=== PATIENT | male | born 2005 | race Caucasian/White ===

== ENCOUNTER 2023-11-08 10:33 | Emergency (ER) | payer OTHER, SELFPAY ==
--- NOTE | ~2023-11-08 | XR_ITS ---
EXAMINATION: XR CHEST CLINICAL INFORMATION: Chest pain COMPARISON: None available. TECHNIQUE: 2 views of the chest were obtained. FINDINGS: Lungs clear. No pleural effusions. Heart and pulmonary vessels are normal. XR/XR chest 2V IMPRESSION: No active disease.
--- NOTE | 2023-11-08 10:33 | ECG_ITS ---
Test Reason : chest pain Blood Pressure : / mmHG Vent. Rate : 101 BPM Atrial Rate : 101 BPM P-R Int : 114 ms QRS Dur : 094 ms QT Int : 320 ms P-R-T Axes : 087 085 071 degrees QTc Int : 414 ms Sinus tachycardia Right atrial enlargement Borderline ECG No previous ECGs available Referred By: Generic ED Physician Electronically Signed By:Parrish Vasquez
[2023-11-08 10:43] VITALS: BP 131/95; PULSE 93; RESP 18; TEMP 36.6; O2SAT 99; BMI 20.9
--- NOTE | 2023-11-08 14:17 | ED_ITS ---
HPI - General Adult General Chief complaint: Arrhythmia/Palpitations Stated complaint: Chest pain, palpitations Time Seen by Provider: 11/08/23 14:17 Source: patient Mode of arrival: ambulatory Limitations: no limitations History of Present Illness HPI narrative: Patient is a 18-year-old male with history of anxiety on nortriptyline presenting to the emergency department with complaint of palpitations since this morning. 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 States he was previously drinking energy drinks occasionally until he was told those were not good and so he discontinued those a few weeks ago. He denies chest pain but reports some chest tightness and states that when he thinks about his symptoms this increases his anxiety and his symptoms worsen. [place] lightheaded associated with palpitations while at work today. States that he looked up his symptoms online and feels he may have POTS. complaint: palpitations Onset (ago): hour(s) Location: chest Radiation: non-radiation Treatments prior to arrival: none Related Data Allergies Allergy/AdvReac Type Severity Reaction Status Date / Time amoxicillin Allergy Hives Verified 11/08/23 10:44 Review of Systems 2 Review of Systems: As per HPI. Yes all other systems are reviewed and are negative Constitutional: Constitutional: Reports as per HPI [facility] Social History Social History Smoked in Last 30 Days: No Advance Directives: No Advance Directives Information Provided: No Do you have a plan to hurt others: No Plan Physical Exam ED Vital Signs: Vital Signs - 24 hr 11/08/23 14:52 11/08/23 14:52 11/08/23 14:53 Temperature Pulse Rate 62 67 94 Respiratory Rate Blood Pressure 115/77 128/85 124/86 Pulse Oximetry Oxygen Delivery Method 11/08/23 16:27 Temperature 98 F Pulse Rate 94 Respiratory Rate 18 Blood Pressure 124/86 Pulse Oximetry 99 Oxygen Delivery Method Room Air BMI result Body Mass Index 20.9 Vital signs have been reviewed and appear to be correct. Blood pressure mildly elevated. Heart rate normal. Respiratory rate normal. Temperature normal. Oxygen saturation normal. Const General: cooperative, healthy appearing and no acute distress Orientation/consciousness: oriented to person, oriented to place, oriented to time and patient oriented x3 Limitations: no limitations HENMT Head: Yes normocephalic and Yes atraumatic Ears: external ears normal General nose exam: Normal external nose present Face and sinus: Yes face symmetric Mouth: oropharynx normal and moist mucous membranes Throat: Yes uvula midline Eyes Pupils: Equal, round and reactive pupils present Neck Neck: Yes normal visual inspection and Yes supple Resp Effort & Inspection: normal respiratory effort and able to speak in complete sentences Auscultation: clear to auscultation bilaterally Cardio Rate: regular rate Rhythm: regular rhythm Heart sounds: S1 normal heart sound present and S2 normal heart sound present GI Palpation (GI): Soft to palpation and nontender Auscultation: normoactive bowel sounds General: Yes no CVA tenderness Back/Spine/Pelvis Back: no CVA tenderness Skin General skin exam: elasticity normal and turgor normal Neuro General: oriented to person, oriented to place, oriented to time, patient oriented x3, moves all extremities, no focal motor deficits and CN's II-XI intact bilaterally Cranial nerves: Yes Equal, round and reactive pupils present Cognition (Neuro): normal cognition Extrem General: Yes full ROM, Yes no pedal edema and Yes no calf tenderness Psych Mental Status: mental status grossly normal Affect: normal affect Thought process: Normal thought process present Medications Administered Discontinued Medications Generic Name Dose Route Start Last Admin Trade Name Freq PRN Reason Stop Dose Admin Sodium Chloride 1,000 mls @ 999 mls/hr 11/08/23 14:30 11/08/23 16:02 Ns IV 11/08/23 15:30 Infused .Q1H1M ARINA Infusion Medical Decision Making Medical Decision Making [facility] Narrative: Patient is a 18-year-old male with history of anxiety on nortriptyline presenting to the emergency department with complaint of palpitations since this morning. On exam patient is awake, A+Ox3, VS WNL, afebrile, normal neurological exam without focal deficits, physical exam findings as above. Given reported symptoms and physical exam findings, initial differential includes cardiac arrhythmia, electrolyte abnormality, dehydration, orthostatic intolerance, viral illness. Unlikely ACS. Plan: EKG, labs, CXR, viral swabs Labs notable for no leukocytosis, no anemia, no electrolyte abnormalities, no evidence of KAYLA, negative troponin. X-ray chest unremarkable on my initial review. Will contact patient if any concerning findings noted by radiologist. EKG shows sinus tachycardia with rate of 101. Viral swabs negative. Heart rate increased with orthostatic vital signs but blood pressure euvolemic. Differential Diagnosis Differential Diagnoses: The differential diagnosis associated with the presentation includes As per MDM. Admission/Observation Consideration of admission/observation: Escalation of care including admission/observation considered Patient would have been admitted to the hospital had their work up had any findings where hospital admission was appropriate and their clinical presentation warranted hospital admission. Lab Data [facility] Lab Attestation statement: I reviewed the patient's lab results. As per [facility] 11/08/23 14:47 11/08/23 14:47 Labs: Lab Results 11/08/23 11/08/23 Range/Units 14:47 14:57 WBC 5.6 (4.8-10.8) X10*3/uL RBC 4.92 (4.60-5.80) X10*6/uL Hgb 15.7 (14.0-18.0) g/dl Hct 44.6 (42.0-52.0) % MCV 90.7 (80.0-98.0) fL MCH 31.9 (27.0-33.0) pg MCHC 35.2 (31.0-36.0) g/dl RDW 11.4 (11.0-16.0) % Plt Count 229 (160-400) X10*3/uL MPV 9.7 (9.4-12.4) fL Immature Gran % (Auto) 0.2 (0.0-0.4) % Neut % (Auto) 58.2 (45-73) % Lymph % (Auto) 31.9 (20-40) % Gaston % (Auto) 5.7 (2-11) % Eos % (Auto) 2.9 (0-4) % Baso % (Auto) 1.1 (0-2) % Lymph # (Auto) 1.8 (1.2-4.9) X10*3/uL Gaston # (Auto) 0.3 (0.1-1.2) X10*3/uL Eos # (Auto) 0.2 (0.0-0.4) X10*3/uL Baso # (Auto) 0.1 (0.0-0.2) X10*3/uL Abs Immat Gran (auto) 0.01 (0.00-0.03) X10*3/uL Absolute Neuts (auto) 3.3 (2.0-8.3) x10*3/uL Absolute Nucleated RBC 0.000 (0.0-0.012) X10*3/uL Nucleated RBC % (auto) 0.0 (0.0-0.2) /100WBC Sodium 141 (135-145) mmol/L Potassium 3.8 (3.3-5.1) mmol/L Chloride 105 (96-108) mmol/L Carbon Dioxide 27 (22-29) mmol/L Anion Gap 13 (12-20) BUN 14 (9-16) mg/dL Creatinine 0.78 (0.5-1.4) mg/dL Estim Creat Clear Calc 145.3 Estimated GFR > 60 Random Glucose 90 (60-115) mg/dL Calcium 9.9 (8.4-10.2) mg/dL Magnesium 2.3 (1.6-2.6) mg/dL Total Bilirubin 0.7 (0.0-1.0) mg/dL AST 20 (5-37) U/L ALT 14 (0-40) U/L Alkaline Phosphatase 52 (39-117) U/L Troponin I High Sens < 2.7 (<3.5-35.0) ng/L Total Protein 7.6 (6.5-8.0) g/dL Albumin 4.6 (3.5-5.0) g/dL Influenza Type A (PCR) NEGATIVE (Negative) Influenza Type B (PCR) NEGATIVE (Negative) RSV RNA Qual (PCR) NEGATIVE (Negative) SARS-CoV-2 RNA (RT-PCR) NEGATIVE (Negative) Independent Interpretation I performed an independent interpretation of an: EKG (Sinus tachycardia, rate 101 beats per minute, slightly shortened SD interval, normal QTC) and Plain X- Ray Interpretation: CXR unremarkable. Radiology Impression Discussion of test interpretation with radiology: I have reviewed the radiologist's reading. Radiologist Impression: FINDINGS: Lungs clear. No pleural effusions. Heart and pulmonary vessels are normal. XR/XR chest 2V IMPRESSION: No active disease. External Record Review External record reviewed: Inpatient record, Office record and Outpatient record Discharge Plan Discharge Clinical Impression: Palpitations Patient Disposition: Home, Self-Care Instructions: Heart Palpitations (DC) Additional Instructions: You were evaluated in the emergency department for heart palpitations. Your evaluation did not show evidence of conditions requiring emergent medical treatment at this time. We recommend he follow up with her primary care provider. We recommend that while you are working outdoors, you alternate water with drinks containing electrolytes such as Gatorade or Powerade. Return to the emergency department if you develop chest pain, difficulty breathing, dizziness, fainting or any other concerning symptoms. Stand Alone Forms: Work/School Release Interventions: ED Discharge Assessment Last Done: 11/08/23 16:27 Discharge Date/Time: 11/08/23 16:34 Print Language: Burundian
--- OUTSIDE RECORDS SUMMARY | 2023-11-08 14:28 | XMS_ITS | Continuity of Care Document ---
Author Organization [facility] Address [address] [place] [address]- Care Team Providers Care Concrete Bucket Loader Name Role Phone Shannon Frank MD Primary Care Physician Encounter [facility] Date(s): 06/11/23 - 07/11/23 [facility] [address] [place] [address]- Attending Physician: Kris Keller Admitting Physician: Kris Keller Referring Physician: AdmKris rizvi Allergies, Adverse Reactions, Alerts Substance Reaction Severity Status amoxicillin Rash Active Immunizations Given and Recorded Vaccine Date Status Refusal Reason SARS-CoV-2 (COVID-19) mRNA BNT-162b2 vac 10/14/20 Given Medications hyoscyamine 0.125 mg oral tablet 0.125 mg, 1, tablet, By Mouth, Every 6 hours, PRN, # 90 tablet, Refills 2, Tot. Refills 2, Maintenance, Other abdominal cramping, 06/11/23 13:51:00 EST, Route to Pharmacy Electronically, [facility]/pharmacy #[id number], 180, cm, 06/11/23 13:31:00 EST, Height Start Date: 06/11/23 Status: Ordered Readi-Cat 2 Smoothie Morocho 2% oral suspension See Instructions, as directed, # 2 each, 0 Refills, Maintenance, 06/11/23 13:53:00 EST, [facility], ok to sub for any flavor, as directed, 180, cm, 06/11/23 13:31:00 EST, Height Start Date: 06/11/23 Status: Ordered Problem List Condition Confirmation Course Effective Dates Status H ealth Status Informant IBS (irritable bowel syndrome) Confirmed Active Periumbilical abdominal pain Confirmed Active Patient Care team information Care Team Personnel Name: Shannon Frank MD Position: S Physician - Pediatrics Member Role: PCP Address: Address: [address] [place] [address]- Care Team Related Persons Name: RAJ TRINIDAD Address: [address] [place] [address] Name: BEULAH MITCHELL Address: home [address] [place] [address] Name: BEULAH MITCHELL Address: [address] [place] [address]
--- OUTSIDE RECORDS SUMMARY | 2023-11-08 14:28 | XMS_ITS | Continuity of Care Document ---
Author Organization [facility] Address [address] [place] [address]- Care Team Providers Care Toy Stuffer Name Role Phone Shannon Frank MD Primary Care Physician Encounter [facility] [place] Date(s): 06/11/23 - 06/18/23 [facility] [address] [place] [address]- Encounter Diagnosis IBS (irritable bowel syndrome)(Discharge Diagnosis) - 06/11/23 Periumbilical abdominal pain(Discharge Diagnosis) - 06/11/23 Chronic constipation(Discharge Diagnosis) - 06/11/23 Rectal tenesmus(Discharge Diagnosis) - 06/11/23 Anal pruritus(Discharge Diagnosis) - 06/11/23 Attending Physician: Jason Henderson MD Referring Physician: Shannon Frank MD Allergies, Adverse Reactions, Alerts Substance Reaction Severity Status amoxicillin Rash Active Immunizations Given and Recorded Vaccine Date Status Refusal Reason SARS-CoV-2 (COVID-19) mRNA BNT-162b2 vac 10/14/20 Given Medications Anusol-HC 2.5% topical cream 1 application, Topically, 2 times a day, for 10 days, Do not use for more than 10 consecutive days,# 20 Gm, 0 Refills, Acute 06/21/23 13:56:00 EST, 06/11/23 13:56:00 EST, Cream, [facility], Partial fill upon patient request if the pr... Start Date: 06/11/23 Stop Date: 06/21/23 Status: Ordered hyoscyamine 0.125 mg oral tablet 0.125 mg, 1, tablet, By Mouth, Every 6 hours, PRN, # 90 tablet, Refills 2, Tot. Refills 2, Maintenance, Other abdominal cramping, 06/11/23 13:51:00 EST, Route to Pharmacy Electronically, [facility]/pharmacy #[id number], 180, cm, 06/11/23 13:31:00 EST, Height Start Date: 06/11/23 Status: Ordered Readi-Cat 2 Smoothie Morocho 2% oral suspension See Instructions, as directed, # 2 each, 0 Refills, Maintenance, 06/11/23 13:53:00 EST, [facility], ok to sub for any flavor, as directed, 180, cm, 06/11/23 13:31:00 EST, Height Start Date: 06/11/23 Status: Ordered Problem List Condition Confirmation Course Effective Dates Status H ealth Status Informant IBS (irritable bowel syndrome) Confirmed Active Periumbilical abdominal pain Confirmed Active Diagnosis Diagnosis Type Effective Dates Health Status Clinical Service Informant IBS (irritable bowel syndrome) Discharge Diagnosis 06/11/23 Periumbilical abdominal pain Discharge Diagnosis 06/11/23 Chronic constipation Discharge Diagnosis 06/11/23 Rectal tenesmus Discharge Diagnosis 06/11/23 Anal pruritus Discharge Diagnosis 06/11/23 Vital Signs Most recent to oldest [Reference Range]: 1 Height 180 cm (06/11/23 1:31 PM) Weight 67.9 kg (06/11/23 1:31 PM) Pulse Rate [55-90 bpm] 59 bpm (06/11/23 1:31 PM) Body Mass Index [18.5-24.99 kg/m2] 20.96 kg/m2 (06/11/23 1:31 PM) Blood Pressure [90-138/55-84 mm Hg] 124/ 76mm Hg (06/11/23 1:31 PM) Blood pressure sites Arm, left (06/11/23 1:31 PM) Weight Obtained Via Bed scale (06/11/23 1:31 PM) Patient Care team information Care Team Personnel Name: Shannon Frank MD Position: [facility] Physician - Pediatrics Member Role: PCP Address: Address: [address] [place] [address]- Care Team Related Persons Name: RAJ TRINIDAD Address: home [address] [place] [address] Name: BEULAH MITCHLEL Address: home [address] [place] [address]
--- OUTSIDE RECORDS SUMMARY | 2023-11-08 14:28 | XMS_ITS | Continuity of Care Document ---
Author Organization [facility] Address [address] [place] [address]- Care Team Providers Care Genomics Scientist Name Role Phone Shannon Frank MD Primary Care Physician [phone] Encounter [facility] Date(s): 06/22/22 - 07/22/22 [facility] [address] [place] [address]- Attending Physician: Kris Keller Admitting Physician: Kris Keller Referring Physician: Admtr, Ar8 Immunizations Given and Recorded Vaccine Date Status Refusal Reason SARS-CoV-2 (COVID-19) mRNA BNT-162b2 vac 10/14/20 Given Patient Care team information Care Team Personnel Name: Shannon Frank MD Position: [facility] General Pediatrics Member Role: PCP Address: Address: [address] [place] [address]- Care Team Related Persons Name: RAJ TRINIDAD Address: home [address] [place] [address] Name: BEULAH MITCHELL Address: home [address] [place] [address]
--- OUTSIDE RECORDS SUMMARY | 2023-11-08 14:28 | XMS_ITS | Continuity of Care Document ---
Author Organization [facility] Address [address] [place] [address]- Care Team Providers Care Cost Report Clerk Name Role Phone Zac MESA, Shannon Ortega Primary Care Physician [phone] Encounter [facility] Date(s): 07/05/23 - 08/04/23 [facility] [address] [place] [address]- [place] Allergies, Adverse Reactions, Alerts Substance Reaction Severity Status amoxicillin Rash Active Immunizations Given and Recorded Vaccine Date Status Refusal Reason SARS-CoV-2 (COVID-19) mRNA BNT-162b2 vac 10/14/20 Given Medications hyoscyamine 0.125 mg oral tablet 0.125 mg, 1, tablet, By Mouth, Every 6 hours, PRN, # 90 tablet, Refills 2, Tot. Refills 2, Maintenance, Other abdominal cramping, 06/11/23 13:51:00 EST, Route to Pharmacy Electronically, [facility]/pharmacy #[id number], 180, cm, 06/11/23 13:31:00 EST, Height Start Date: 06/11/23 Status: Ordered PEG-3350 with Electrolytes (Eqv-GoLYTELY) oral powder for reconstitution See Instructions, per GI office, # 4,000 mL, 0 Refills, Maintenance, 07/30/23 8:42:00 EST, [facility]/pharmacy #[id number], Partial fill upon patient request if the prescription is for a schedule II opioid drug.,per GI office, 180, cm, 06/11/23 13:31:00 EST, Height Start Date: 07/30/23 Status: Ordered Readi-Cat 2 Smoothie Morocho 2% oral suspension See Instructions, as directed, # 2 each, 0 Refills, Maintenance, 06/11/23 13:53:00 EST, [facility], ok to sub for any flavor, as directed, 180, cm, 06/11/23 13:31:00 EST, Height Start Date: 06/11/23 Status: Ordered Problem List Condition Confirmation Course Effective Dates Status H ealth Status Informant IBS (irritable bowel syndrome) Confirmed Active Periumbilical abdominal pain Confirmed Active Patient Care team information Care Team Personnel Name: Shannon Frank MD Position: [facility] Physician - Pediatrics Member Role: PCP Address: Address: [address] [place] [address]- Care Team Related Persons Name: RAJ TRINIDAD Address: home [address] [place] [address] Name: BEULAH MITCHELL Address: home [address] [place] [address] Name: BEULAH MITCHELL Address: [place] [address] [place] [address]
--- OUTSIDE RECORDS SUMMARY | 2023-11-08 14:28 | XMS_ITS | Continuity of Care Document ---
Author Organization [facility] Address [address] [place] [address]- Care Team Providers Care Neurology Professor Name Role Phone Shannon Frank MD Primary Care Physician Encounter [facility] Date(s): 04/17/23 - 05/17/23 [facility] [address] [place] [address]- Attending Physician: Kris Keller Admitting Physician: Kris Keller Referring Physician: AdmtrKris Allergies, Adverse Reactions, Alerts Substance Reaction Severity Status amoxicillin Rash Persistent Severe Resolved Immunizations Given and Recorded Vaccine Date Status Refusal Reason SARS-CoV-2 (COVID-19) mRNA BNT-162b2 vac 10/14/20 Given Medications dicyclomine 20 mg oral tablet 1 tablet = 20 mg, By Mouth, 4 times a day, # 360 tablet, 2 Refills, Maintenance, 04/17/23 13:54:00 EDT, Tablet, [facility]/pharmacy #[id number], 150, cm, 04/17/23 13:23:00 EDT, Height Start Date: 04/17/23 Stop Date: 01/12/24 Status: Ordered Problem List Condition Confirmation Course Effective Dates Status H ealth Status Informant IBS (irritable bowel syndrome) Confirmed Active Obese class I Confirmed Active Periumbilical abdominal pain Confirmed Active Patient Care team information Care Team Personnel Name: Shannon Frank MD Position: S Physician - Pediatrics Member Role: PCP Address: Address: [address] [place] [address]- Care Team Related Persons Name: RAJ TRINIDAD Address: home [address] [place] [address] Name: BEULAH MITCHELL Address: [address] [place] [address]
--- OUTSIDE RECORDS SUMMARY | 2023-11-08 14:29 | XMS_ITS | Continuity of Care Document ---
Author Organization [facility] Address [address] [place] [address]- Care Team Providers Care Fire Official Name Role Phone Zac MESA, Shannon Ortega Primary Care Physician Encounter [facility] [place] Date(s): 07/09/23 - 08/08/23 [facility] [address] [place] [phone]- [place] Allergies, Adverse Reactions, Alerts Substance Reaction [...] 13:51:00 EST, Route to Pharmacy Electronically, [facility]/pharmacy #[id number], 180, cm, 06/11/23 13:31:00 EST, Height Start Date: 06/11/23 Status: Ordered PEG-3350 with Electrolytes (Eqv-GoLYTELY) oral powder for reconstitution See Instructions, per GI office, # 4,000 mL, 0 Refills, Maintenance, 07/30/23 8:42:00 EST, [facility]/pharmacy #[id number], Partial fill upon patient request if the prescription is for a schedule II opioid drug.,per GI office, 180, cm, 06/11/23 13:31:00 EST, Height Start Date: 07/30/23 Status: Ordered Readi-Cat 2 Smoothie Morocho 2% oral suspension See Instructions, as directed, # 2 each, 0 Refills, Maintenance, 06/11/23 13:53:00 EST, [facility], ok to sub for any flavor, as directed, 180, cm, 06/11/23 13:31:00 EST, Height Start Date: 06/11/23 Status: Ordered Problem List Condition Confirmation Course Effective Dates Status H ealth Status Informant IBS (irritable bowel syndrome) Confirmed Active Periumbilical abdominal pain Confirmed Active Patient Care team information Care Team Personnel Name: Shannon Frank MD Position: [facility] Physician - Pediatrics Member Role: PCP Address: Address: [address] [place] [address]- Care Team Related Persons Name: RAJ TRINIDAD Address: home [address] [place] [address] Name: BEULAH MITCHELL Address: home [address] [place] [address] Name: BEULAH MITCHELL Address: [address] [place] [address]
--- OUTSIDE RECORDS SUMMARY | 2023-11-08 14:29 | XMS_ITS | Continuity of Care Document ---
Author Organization [facility] ter Address [address] [place] [address]- Care Team Providers Care Automotive Painter Helper Name Role Phone Zac MESA, Shannon Ortega Primary Care Physician [phone] Encounter [facility] Date(s): 07/31/23 - 07/31/[address] [address] Discharge Disposition: A-D/C Home Attending Physician: Homero Frye MD Admitting Physician: Homero Frye MD Referring Physician: Homero Frye MD Allergies, Adverse Reactions, Alerts Substance Reaction Severity Status amoxicillin Rash Active Immunizations Given and Recorded Vaccine Date Status Refusal Reason SARS-CoV-2 (COVID-19) mRNA BNT-162b2 vac 10/14/20 Given Medications hyoscyamine 0.125 mg oral tablet 0.125 mg, 1, tablet, By Mouth, Every 6 hours, PRN, # 90 tablet, Refills 2, Tot. Refills 2, Maintenance, Other abdominal cramping, 06/11/23 13:51:00 EST, Route to Pharmacy Electronically, [id number], 180, cm, 06/11/23 13:31:00 EST, Height Start Date: 06/11/23 Status: Ordered PEG-3350 with Electrolytes (Eqv-GoLYTELY) oral powder for reconstitution See Instructions, per GI office, # 4,000 mL, 0 Refills, Maintenance, 07/30/23 8:42:00 EST, [id number], Partial fill upon patient request if the prescription is for a schedule II opioid drug.,per GI office, 180, cm, 06/11/23 13:31:00 EST, Height Start Date: 07/30/23 Status: Ordered Readi-Cat 2 Smoothie Morocho 2% oral suspension See Instructions, as directed, # 2 each, 0 Refills, Maintenance, 06/11/23 13:53:00 EST, [facility], ok to sub for any flavor, as directed, 180, cm, 06/11/23 13:31:00 EST, Height Start Date: 06/11/23 Status: Ordered Problem List Condition Confirmation Course Effective Dates Status H ealth Status Informant IBS (irritable bowel syndrome) Confirmed Active Periumbilical abdominal pain Confirmed Active Vital Signs Most recent to oldest [Reference Range]: 1 2 3 Height 180 cm (07/31/23 10:29 AM) Weight 69 kg (07/31/23 10:29 AM) Oxygen Saturation [94-100 %] 100 % (07/31/23 12:06 PM) 100 % (07/31/23 11:56 AM) 100 % (07/31/23 11:51 AM) Pulse Rate [55-90 bpm] 97 bpm *H* (07/31/23 10:29 AM) Body Mass Index [18.5-24.99 kg/m2] 21.3 kg/m2 (07/31/23 10:29 AM) Blood Pressure [90-138/55-84 mm Hg] 128/69mm Hg (07/31/23 12:06 PM) 142/78mm Hg *H* (07/31/23 11:56 AM) 116/76mm Hg (07/31/23 11:51 AM) Respiratory Rate [16-30 br/min] 16 br/min (07/31/23 12:06 PM) 23 br/min (07/31/23 11:56 AM) 21 br/min (07/31/23 11:51 AM) Temperature [96.8-100.4 DegF] 98.5 DegF (07/31/23 10:29 AM) Liters per Minute 4 L/min (07/31/23 11:51 AM) 8 L/min (07/31/23 11:48 AM) 8 L/min (07/31/23 11:45 AM) Mode of Delivery (Oxygen) Room air (07/31/23 12:06 PM) Room air (07/31/23 11:56 AM) Simple face mask (07/31/23 11:51 AM) Temperature Route Temporal (07/31/23 10:29 AM) Dry Weight 69 kg (07/31/23 10:29 AM) Note * Lady Gallego RN: PERFORM Event Display: Discharge/Transfer Note Hospital Authored Date: [id number] Nursing Discharge Note Entered On: 07/31/2023 11:47 EST Performed On: 07/31/2023 11:47 EST by Lady Gallego RN Nursing Discharge Note 2 Discharge Time : 07/31/2023 12:23 EST Kristy Elaine RN - 07/31/2023 12:24 EST Discharge Level of Care at Discharge : Home/Penitentiary/Foster Care Patient Left Unit Via : Wheelchair Patient Accompanied Off Unit with : Responsible adult DC Instructions Provided & Signed by Pt : Yes Patient Understands D/C Instructions : Yes Patient Instructions Discharge Signed : Yes Did Pt have Specialty Bed or Wound Vac : No Lady Gallego RN - 07/31/2023 11:47 EST * Lady Gallego RN: PERFORM Event Display: Patient Education/Instruction Authored Date: [id number] [place] [address] Name: SETH MITCHELL : 2005?? Visit: 07/31/2023 09:46?? Current Date: 07/31/2023 11:48 ?? Account: [id number]?? Surgery Discharge Instructions We would like to thank you for allowing us to assist you with your healthcare needs. The following includes patient education materials and information regarding your injury/illness. Our entire staffstrives to provide an excellent experience for our patients and their families. PLEASE ENSURE YOU FOLLOW-UP PER THE INSTRUCTIONS BELOW! ?? YOUR OPINION IS IMPORTANT TO US! Please complete the survey you may receive by mail or email. Your feedback will be used to make improvements to the healthcare experiences of our patients and their families. Surveys are administered by [employer] ?? If further treatment with your primary care physician or another doctor is recommended, it is important for you to keep the appointment. Call your primary care physician or return to the Emergency Department immediately if your condition worsens, fails to improve, or new symptoms develop. If you need to find a doctor, you can call [facility] for a referral at [phone] or toll free at [phone] ([phone]) or log in to [email or web address].. ?? [facility], in keeping with [facility] guidance, no longer requires face masks for staff, patientsor visitors in most situations. Similiar to time spent indoors at other locations, there is the chance that you were exposed to repiratory viruses during your time with us (such as flu or COVID-19). If you develop symptoms concerning for a viral respiratory infection, please seek testing (and treatment if indicated) from your medical provider or home test kit. ?? You can view and manage your care through the patient portal or by using a health care diana of your choosing. [employer] is a website that allows you to securely view your medical information including your hospital discharge summary, office visit summaries, medications and follow-up visits. You can also request appointments, renew medications, and request access to your medical information using a health care diana of your choosing, or just ask a question. You are entitled to know the individuals who participated in your treatment. This information is available within your medical record and will be provided upon your request. You can enroll at [email or web address] or register d uring your next office visit. You have been discharged from [facility], Patient Care Unit: ENDO??. If you have any questions regarding these instructions after you leave, please call us and we will be happy to assist you. [facility] Your Care Team Attending Physician Uday MESA, Homero Valencia?? Discharging Providers Homero Frye MD Reason for Admission ABN CT SHOWING COLITISSTOOL STUDY NEGATIVE Primary Care Provider Shannon Frank MD? Advance Directive Health Care Proxy on File No What to do next Instructions From Your Doctor ?? Orders?? Daystay Protocol, ??07/31/23 11:40:00 EST?? Scheduled Follow-Up Appointments 2023 3:00 PM EST ?? With: Hossein CARLSON, Chester Henderson Where: [facility] [address] [place] [address]- Status: Pending You Need to Schedule the Following Appointments Follow Up with??Follow up with primary care as needed Follow Up with??Shannon Frank When:??In 0 days Discharge Medications SETH MITCHELL :2005 Visit Date:07/31/2023 Medications: Please continue your medications until treatment is completed or stopped by your provider. You may resume your daily prescription medications. Discuss any questions related to medications with your provider. What How Much When Instructions Next Dose Unchanged Barium Sulfate (Readi-Cat 2 Smoothie Morocho 2% oral suspension) See instructions as directed ?? Unchanged Hyoscyamine (hyoscyamine 0.125 mg oral tablet) 1 tab(s) Oral Every 6 hours as needed for Other abdominal cramping Unchanged PEG Electrolyte Solution (PEG-3350 with Electrolytes (Eqv-GoLYTELY) oral powder for reconstitution) See instructions per GI office ?? Allergies (NKA means No Known Allergies) amoxicillin??(Rash) Education Materials Below is the list of Educational Leaflet Providered with your Discharge Instructions. Surgery Medical Daystay Surgical Overnight Discharge Instructions?? Valuables and Belongings I fully understand and agree that [facility] accepts no responsibility for all my personal property including clothing, toilet articles, radios, jewelry, dentures, hearing aids, rings, money, or any other property that is in my possession or is brought to me after admission. I understand certain valuables may be placed in a hospital safe for a short period of time. I understand that the hospital is not liable for loss or damage due to accident, fire, or other natural occurrence while said property is in the safe. I accept full responsibility for any personal property that I keep with me, and will not hold the hospital responsible in case of loss or disappearance. I acknowledge that i have been encouraged to send valuables and belongings home. ? Other Discharge Information ? Case Management Discharge Plan?? Discharge Plan?? Discharge Level of Care at Discharge: Home/Penitentiary/Foster Care ?? Pulmonary Rehab Status?? Pulmonary Rehab Discharge Status?? Respiratory Rate: 17 br/min ? Common Emergency Awareness Tips IS IT A STROKE? Act FAST and Check for these signs: FACE Does the face look uneven? ARM Does one arm drift down? SPEECH Does their speech sound strange? TIME Call at any sign of stroke ?? Heart Attack Signs Chest discomfort: Most heart attacks involve discomfort in the center of the chest and lasts more than a few minutes, or goes away and comes back. It can feel like uncomfortable pressure, squeezing, fullness or pain. Discomfort in upper body: Symptoms can include pain or discomfort in one or both arms, back, neck, jaw or stomach. Shortness of breath: With or without discomfort. Other signs: Breaking out in a cold sweat, nausea, or lightheaded. Remember, MINUTES DO MATTER. If you experience any of these heart attack warning signs, call to get immediate medical attention! ?? Smoking can increase your chances of developing chronic health problems and can cause harmful effects to other family members in your house. If you smoke, you are strongly encouraged to quit. Please call [facility] at [phone] or [phone]) or log in to [email or web address] for referrals to smoking cessation programs. ?? The National Suicide Prevention Hotline is available 22/01 if you or someone you know needs to find a reason to keep living. By calling 4-022-987-Clixtr (2169) you'll be connected to a skilled, trained counselor at a crisis center in your area. SURGERY DISCHARGE INSTRUCTIONS SIGNATURE PAGE PAULASETH Location:[facility] Registration Date and Time:07/31/2023 09:46 EST Primary Care Physician: Shannon Frank MD, Attending Physician: Uday MESA, Homero Valencia, I SETH MITCHELL, have received the above patient education materials/instructions and have verbalized understanding. If ambulance or transport services are being used I further acknowledge beinggiven a choice of service. ?? If you need to contact me, please call me at this number: . Patient/Strategy Consultant Name: Patient/Strategy Consultant Signature: Relationship to Patient: Witness Name/Signature: Date: * Lady Gallego RN: PERFORM, SIGN, VERIFY Event Display: Patient Education Handout Authored Date: [id number] * Lady Gallego RN: PERFORM Event Display: Patient Education Leaflets Authored Date: [id number] Surgery Medical Daystay Surgical Overnight Discharge Instructions ?? 295 Medical Daystay/Surgical Overnight Discharge Instructions ? Since your coordination and judgment may be altered by medication and/or anesthesia, a responsible adult must drive you home from the hospital. ? If you have received medication for pain or sedation while under our care, you should not drive, operate machinery, drink alcohol, or sign any legal documents for 24 hours.?? You should have someone with you at home tonight. ? Remain at home the day of discharge.?? You may be up and about unless otherwise instructed by your physician. ? You may resume your daily prescription medication schedule.?? Any depressant medication should be avoided for 24 hours unless otherwise instructed by your surgeon or anesthesiologist. ? Call your physician for a follow-up appointment.? If you experience unusual or severe pain not relied by your pain medication, excessive bleedingor drainage, persistent nausea and vomiting, excessive swelling or redness, foul odor from incisionsite or fever over 100.6F, you need to call your physician. ? A follow-up phone call by a nurse will be made the day after your procedure.?? If you have stayed with us over night, you will not be receiving a follow-up phone call. ? Nausea and vomiting are a common side effect of prescription pain medication.?? We recommend that pills are not taken on an empty stomach.?? While taking any prescription pain medication you should not drive or drink alcohol. ? Patient Care team information Care Team Personnel Name: Shannon Frank MD Position: [facility] Physician - Pediatrics Member Role: PCP Address: Address: [address] [place] [address]- Care Team Related Persons Name: RAJ TRINIDAD Address: home [address] [place] Name: BEULAH MITCHELL Address: home [address] [place] Name: BEULAH MITCHELL Address: [place] [address] [place] [address]
--- OUTSIDE RECORDS SUMMARY | 2023-11-08 14:29 | XMS_ITS | Continuity of Care Document ---
Author Organization [facility] Address [address] [place] [address]- Care Team Providers Care Bulk Materials Handling Plant Operator Name Role Phone Zac MESA, Shannon Ortega Primary Care Physician Encounter [facility] Date(s): 07/16/23 - 08/15/23 [facility] [address] [place] [address]- [place] Allergies, Adverse Reactions, Alerts Substance Reaction [...] 13:51:00 EST, Route to Pharmacy Electronically, [facility] #[id number], 180, cm, 06/11/23 13:31:00 EST, Height Start Date: 06/11/23 Status: Ordered nortriptyline 10 mg oral capsule 10 mg, 1, capsule, By Mouth, Daily at bedtime, # 90 capsule, Refills 3, Tot. Refills 3, Maintenance, 08/09/23 15:12:00 EST, Route to Pharmacy Electronically, [facility]/pharmacy #[id number], 180, cm, 08/09/23 15:01:00 EST, Height, 69, kg, 07/31/23 10:29:00 EST, . Start Date: 08/09/23 Status: Ordered PEG-3350 with Electrolytes (Eqv-GoLYTELY) oral powder for reconstitution See Instructions, per GI office, # 4,000 mL, 0 Refills, Maintenance, 07/30/23 8:42:00 EST, [facility]/pharmacy #[id number], Partial fill upon patient request if the prescription is for a schedule II opioid drug.,per GI office, 180, cm, 06/11/23 13:31:00 EST, Height Start Date: 07/30/23 Status: Ordered Readi-Cat 2 Smoothie Morocho 2% oral suspension See Instructions, as directed, # 2 each, 0 Refills, Maintenance, 06/11/23 13:53:00 EST, [facility], ok to sub for any flavor, as directed, 180, cm, 06/11/23 13:31:00 EST, Height Start Date: 06/11/23 Status: Ordered Problem List Condition Confirmation Course Effective Dates Status H ealth Status Informant Generalized anxiety disorder Confirmed Active IBS (irritable bowel syndrome) Confirmed Active Periumbilical abdominal pain Confirmed Active Patient Care team information Care Team Personnel Name: Zac MESA, Shannon Ortega Position: [facility] Physician - Pediatrics Member Role: PCP Address: Address: [address] [place] [address]- Care Team Related Persons Name: RAJ TRINIDAD Address: home [facility] [place] [address] Name: BEULAH MITCHELL Address: home [address] [place] [address] Name: BEULAH MITCHELL Address: [place] [address] [place] [address]
--- OUTSIDE RECORDS SUMMARY | 2023-11-08 14:29 | XMS_ITS | Continuity of Care Document ---
Author Organization [facility] Address [address] [place] [address]- Care Team Providers Care Cardiac Technician Name Role Phone Zac MESA, Shannon Ortega Primary Care Physician Encounter [facility] Date(s): 07/09/23 - 08/08/23 [facility] [address] [place] [address]- [place] Allergies, Adverse Reactions, Alerts Substance Reaction Severity Status amoxicillin Rash Active Immunizations Given and Recorded Vaccine Date Status Refusal Reason SARS-CoV-2 (COVID-19) mRNA BNT-162b2 vac 10/14/20 Given Medications hyoscyamine 0.125 mg oral tablet 0.125 mg, 1, tablet, By Mouth, Every 6 hours, PRN, # 90 tablet, Refills 2, Tot. Refills 2, Maintenance, Other abdominal cramping, 06/11/23 13:51:00 EST, Route to Pharmacy Electronically, [facility] #[id number], 180, cm, 06/11/23 13:31:00 EST, Height Start Date: 06/11/23 Status: Ordered PEG-3350 with Electrolytes (Eqv-GoLYTELY) oral powder for reconstitution See Instructions, per GI office, # 4,000 mL, 0 Refills, Maintenance, 07/30/23 8:42:00 EST, [facility] #[id number], Partial fill upon patient request if the prescription is for a schedule II opioid drug.,per GI office, 180, cm, 06/11/23 13:31:00 EST, Height Start Date: 07/30/23 Status: Ordered Readi-Cat 2 Smoothie Morocho 2% oral suspension See Instructions, as directed, # 2 each, 0 Refills, Maintenance, 06/11/23 13:53:00 EST, [facility], ok to sub for any flavor, as directed, 180, cm, 06/11/23 13:31:00 EST, Height Start Date: 06/11/23 Status: Ordered Problem List Condition Confirmation Course Effective Dates Status H ealth Status Informant IBS (irritable bowel syndrome) Confirmed Active Periumbilical abdominal pain Confirmed Active Patient Care team information Care Team Personnel Name: Shannon Frank MD Position: [facility] Physician - Pediatrics Member Role: PCP Address: Address: [address] [place] [address]- Care Team Related Persons Name: RAJ TRINIDAD Address: home [address] [place] [address] Name: BEULAH MITCHELL Address: home [address] [place] [address] Name: BEULAH MITCHELL Address: [address] [place] [address]
--- OUTSIDE RECORDS SUMMARY | 2023-11-08 14:29 | XMS_ITS | Continuity of Care Document ---
Author Organization [facility] Address [address] [place] [address]- Care Team Providers Care Youth Ministry Director Name Role Phone Shannon Frank MD Primary Care Physician Encounter [facility] Date(s): 08/30/23 - 09/29/[address] [address] Allergies, Adverse Reactions, Alerts Substance Reaction Severity Status amoxicillin Rash Active Immunizations Given and Recorded Vaccine Date Status Refusal Reason SARS-CoV-2 (COVID-19) mRNA BNT-162b2 vac 10/14/20 Given Medications hyoscyamine 0.125 mg oral tablet 0.125 mg, 1, tablet, By Mouth, Every 6 hours, PRN, # 90 tablet, Refills 2, Tot. Refills 2, Maintenance, Other abdominal cramping, 06/11/23 13:51:00 EST, Route to Pharmacy Electronically, [facility]/pharmacy #[id number], 180, cm, 06/11/23 13:31:00 EST, Height Start Date: 06/11/23 Status: Ordered nortriptyline 10 mg oral capsule 10 mg, 1, capsule, By Mouth, Daily at bedtime, # 90 capsule, Refills 3, Tot. Refills 3, Maintenance, 08/09/23 15:12:00 EST, Route to Pharmacy Electronically, [facility]/pharmacy #[id number], 180, cm, 08/09/23 15:01:00 EST, Height, 69, kg, 07/31/23 10:29:00 EST, . Start Date: 08/09/23 Status: Ordered PEG-3350 with Electrolytes (Eqv-GoLYTELY) oral powder for reconstitution See Instructions, per GI office, # 4,000 mL, 0 Refills, Maintenance, 07/30/23 8:42:00 EST, [facility]/pharmacy #[id number], Partial fill upon patient request if the prescription is for a schedule II opioid drug.,per GI office, 180, cm, 06/11/23 13:31:00 EST, Height Start Date: 07/30/23 Status: Ordered Readi-Cat 2 Smoothie Morocho 2% oral suspension See Instructions, as directed, # 2 each, 0 Refills, Maintenance, 06/11/23 13:53:00 EST, [facility], ok to sub for any flavor, as directed, 180, cm, 06/11/23 13:31:00 EST, Height Start Date: 06/11/23 Status: Ordered Problem List Condition Confirmation Course Effective Dates Status H ealth Status Informant Generalized anxiety disorder Confirmed Active IBS (irritable bowel syndrome) Confirmed Active Periumbilical abdominal pain Confirmed Active Patient Care team information Care Team Personnel Name: Zac MESA, Shannon Ortega Position: [facility] Physician - Pediatrics Member Role: PCP Address: Address: [address] [place] [address]- Care Team Related Persons Name: RAJ TRINIDAD Address: home [address] [place] [address] Name: BEULAH MITCHELL Address: home [address] [place] [address] Name: BEULAH MITCHELL Address: home [address] [place] [address]
--- OUTSIDE RECORDS SUMMARY | 2023-11-08 14:29 | XMS_ITS | Continuity of Care Document ---
Author Organization [facility] Address [address] [place] [address]- Care Team Providers Care Paper Reclaiming Machine Operator Name Role Phone Shannon Frank MD Primary Care Physician En[facility] Date(s): 05/01/23 - 05/31/23 [facility] [address] [place] [address]- Allergies, Adverse Reactions, Alerts Substance Reaction Severity [...] - Pediatrics Member Role: PCP Address: Address: [address] [place] [address]- [place] Care Team Related Persons Name: RAJ TRINIDAD Address: home [address] [place] [address] Name: BEULAH MITCHELL Address: home [address] [place] [address]
--- OUTSIDE RECORDS SUMMARY | 2023-11-08 14:29 | XMS_ITS | Continuity of Care Document ---
Author Organization [facility] Address [address] [place] [id number]- Care Team Providers Care Limb Driver Name Role Phone Zac MESA, Shannon Ortega Primary Care Physician [phone] [place] [facility] [place]23 - 08/08/23 [facility] [address] [place] [address]- [place] Allergies, Adverse Reactions, Alerts Substance Reaction Severity Status amoxicillin Rash Active Immunizations Given and Recorded Vaccine Date Status Refusal Reason SARS-CoV-2 (COVID-19) mRNA BNT-162b2 vac 10/14/20 Given Medications hyoscyamine 0.125 mg oral tablet 0.125 mg, 1, tablet, By Mouth, Every 6 hours, PRN, # 90 tablet, Refills 2, Tot. Refills 2, Maintenance, Other abdominal cramping, 06/11/23 13:51:00 EST, Route to Pharmacy Electronically, [facility]/pharmacy #[id number], 180, cm, 06/11/23 13:31:00 EST, Height Start Date: 06/11/23 Status: Ordered PEG-3350 with Electrolytes (Eqv-GoLYTELY) oral powder for reconstitution See Instructions, per GI office, # 4,000 mL, 0 Refills, Maintenance, 07/30/23 8:42:00 EST, [facility]/pharmacy #[id number], Partial fill upon patient request if the prescription is for a schedule II opioid drug.,per GI office, 180, cm, 06/11/23 13:31:00 EST, Height Start Date: 07/30/23 Status: Ordered Readi-Cat 2 Smoothie [place] 2% oral suspension See Instructions, as directed, # 2 each, 0 Refills, Maintenance, 06/11/23 13:53:00 EST, [facility], ok to sub for any flavor, as directed, 180, cm, 06/11/23 13:31:00 EST, Height Start Date: 06/11/23 Status: Ordered Problem List Condition Confirmation Course Effective Dates Status H ealth Status Informant IBS (irritable bowel syndrome) Confirmed Active Periumbilical abdominal pain Confirmed Active Patient Care team information Care Team Personnel Name: Shannon Frank MD Position: [facility] Physician - Pediatrics Member Role: PCP Address: Address: [address] [place] [address]- Care Team Related Persons Name: RAJ TRINIDAD Address: home [address] [place] [address] Name: BEULAH MITCHELL Address: home [address] [place] [address] Name: BEULAH MITCHELL Address: [address] [place] [address]
--- OUTSIDE RECORDS SUMMARY | 2023-11-08 14:29 | XMS_ITS | Continuity of Care Document ---
Author Organization [facility] Address [address] [place] [address]- Care Team Providers Care Clinical Lab Assistant Name Role Phone Shannon Frank MD Primary Care Physician Encounter [facility] [place] Date(s): 04/26/22 - 07/22/22 [facility] [address] [place] [address]- Attending Physician: Jhonatan Castorena MD Admitting Physician: Jhonatan Castorena MD Referring Physician: Shannon Frank MD Immunizations Given and Recorded Vaccine Date Status Refusal Reason SARS-CoV-2 (COVID-19) mRNA BNT-162b2 vac 10/14/20 Given Vital Signs Most recent to oldest [Reference Range]: 1 Height 150 cm (06/22/22 1:04 PM) Weight 70.2 kg (06/22/22 1:04 PM) Pulse Rate [55-90 bpm] 80 bpm (06/22/22 1:04 PM) Body Mass Index [18.5-24.99 kg/m2] 31.2 kg/m2 *>HHI* (06/22/22 1:04 PM) Blood Pressure [90-138/55-84 mm Hg] 141/ 55mm Hg *H* (06/22/22 1:04 PM) Temperature [96.8-100.4 DegF] 97.0 DegF (06/22/22 1:04 PM) Blood pressure sites Arm, right (06/22/22 1:04 PM) Temperature Route Temporal (06/22/22 1:04 PM) Weight Obtained Via Standing scale (06/22/22 1:04 PM) Height Percentile 0.01 % 1 (06/22/22 1:04 PM) Height ZScore -3.68 2 (06/22/22 1:04 PM) Weight Percentile Per Age 52.10 % 3 (06/22/22 1:04 PM) BMI Percentile 96.59 4 (06/22/22 1:04 PM) BMI ZScore 1.82 5 (06/22/22 1:04 PM) Weight ZScore 0.05 6 (06/22/22 1:04 PM) 1Result Comment: ^~:!Percentile Source -CDC/WHO 2Result Comment: ^~:!ZScore Source -CDC/WHO 3Result Comment: ^~:!Percentile Source -CDC/WHO 4Result Comment: ^~:!Percentile Source -CDC/WHO 5Result Comment: ^~:!ZScore Source -CDC/WHO 6Result Comment: ^~:!ZScore Source -CDC/WHO Patient Care team information Care Team Personnel Name: Shannon Frank MD Position: [facility] General Pediatrics MD Member Role: PCP Address: Address: [address] [place], [place] [address]- Care Team Related Persons Name: RAJ TRINIDAD Address: home [address] [place] [address] Name: BEULAH MITCHELL Address: [place] [address] [place] [address]
--- OUTSIDE RECORDS SUMMARY | 2023-11-08 14:29 | XMS_ITS | Continuity of Care Document ---
Author Organization [facility] [place] Address [address] [place] [address]- Care Team Providers Care Title Checker Name Role Phone Zac MESA, Shannon Ortega Primary Care Physician Encounter [facility] Date(s): 08/31/23 - 09/30/23 [facility] [place] [address], [place] [address] Allergies, Adverse Reactions, Alerts Substance Reaction Severity Status amoxicillin Rash Active Immunizations Given and Recorded Vaccine Date Status Refusal Reason SARS-CoV-2 (COVID-19) mRNA BNT-162b2 vac 10/14/20 Given Medications hyoscyamine 0.125 mg oral tablet 0.125 mg, 1, tablet, By Mouth, Every 6 hours, PRN, # 90 tablet, Refills 2, Tot. Refills 2, Maintenance, Other abdominal cramping, 06/11/23 13:51:00 EST, Route to Pharmacy Electronically, [facility]/pharmacy #[id number], 180, cm, 06/11/23 13:31:00 EST, Height Start Date: 06/11/23 Status: Ordered nortriptyline 10 mg oral capsule 10 mg, 1, capsule, By Mouth, Daily at bedtime, # 90 capsule, Refills 3, Tot. Refills 3, Maintenance, 08/09/23 15:12:00 EST, Route to Pharmacy Electronically, [facility]/pharmacy #[id number], 180, cm, 08/09/23 15:01:00 EST, Height, 69, kg, 07/31/23 10:29:00 EST, . Start Date: 08/09/23 Status: Ordered PEG-3350 with Electrolytes (Eqv-GoLYTELY) oral powder for reconstitution See Instructions, per GI office, # 4,000 mL, 0 Refills, Maintenance, 07/30/23 8:42:00 EST, [facility]/pharmacy #[id number], Partial fill upon patient request if the prescription is for a schedule II opioid drug.,per GI office, 180, cm, 06/11/23 13:31:00 EST, Height Start Date: 07/30/23 Status: Ordered Readi-Cat 2 Smoothie [place] 2% oral suspension See Instructions, as directed, # 2 each, 0 Refills, Maintenance, 06/11/23 13:53:00 EST, [facility], ok to sub for any flavor, as directed, 180, cm, 06/11/23 13:31:00 EST, Height Start Date: 06/11/23 Status: Ordered Problem List Condition Confirmation Course Effective Dates Status H ealth Status Informant Generalized anxiety disorder Confirmed Active IBS (irritable bowel syndrome) Confirmed Active Periumbilical abdominal pain Confirmed Active Patient Care team information Care Team Personnel Name: Zac MESA, Shannon Ortega Position: [facility] Physician - Pediatrics Member Role: PCP Address: Address: [address] [place] [address]- Care Team Related Persons Name: RAJ TRINIDAD Address: home [address] [place] [address] Name: BEULAH MITCHELL Address: home [address] [place] [address] Name: BEULAH MITCHELL Address: home [address] [place] [address]
--- OUTSIDE RECORDS SUMMARY | 2023-11-08 14:29 | XMS_ITS | Continuity of Care Document ---
Author Organization [facility] Address [address] [place] [address]- Care Team Providers Care Business Insurance Agent Name Role Phone Shannon Frank MD Primary Care Physician [place] [facility] [place] - 05/13/23 [facility] [address] [place] [address]- Attending Physician: Jason Henderson MD Admitting Physician: Jason Henderson MD Referring Physician: Shannon [...] - Pediatrics Member Role: PCP Address: Address: [address] [place] [address]- Care Team Related Persons Name: RAJ TRINIDAD Address: home [address] [place] [address] Name: BEULAH MITCHELL Address: [address] [place] [address]
--- OUTSIDE RECORDS SUMMARY | 2023-11-08 14:29 | XMS_ITS | Continuity of Care Document ---
Author Organization [facility] Address [address] [address]- Care Team Providers Care Handhole Machine Operator Name Role Phone Zac MESA, Shannon Ortega Primary Care Physician [phone] [facility] [place] Date(s): 07/30/23 - 08/29/23 [facility] [address] [address] Allergies, Adverse Reactions, Alerts Substance Reaction [...] 13:51:00 EST, Route to Pharmacy Electronically, [facility]/pharmacy #[id number], 180, cm, 06/11/23 13:31:00 EST, Height Start Date: 06/11/23 Status: Ordered nortriptyline 10 mg oral capsule 10 mg, 1, capsule, By Mouth, Daily at bedtime, # 90 capsule, Refills 3, Tot. Refills 3, Maintenance, 08/09/23 15:12:00 EST, Route to Pharmacy Electronically, [facility]/pharmacy #[id number], 180, cm, 08/09/23 15:01:00 EST, Height, 69, kg, 07/31/23 10:29:00 EST, . Start Date: 08/09/23 Status: Ordered PEG-3350 with Electrolytes (Eqv-GoLYTELY) oral powder for reconstitution See Instructions, per GI office, # 4,000 mL, 0 Refills, Maintenance, 07/30/23 8:42:00 EST, [facility]/pharmacy #[id number], Partial fill upon patient request if the prescription is for a schedule II opioid drug.,per GI office, 180, cm, 06/11/23 13:31:00 EST, Height Start Date: 07/30/23 Status: Ordered Readi-Cat 2 Smoothie [place] 2% oral suspension See Instructions, as directed, # 2 each, 0 Refills, Maintenance, 06/11/23 13:53:00 EST, [facility], ok to sub for any flavor, as directed, 180, cm, 06/11/23 13:31:00 EST, Height Start Date: 06/11/23 Status: Ordered Problem List Condition Confirmation Course Effective Dates Status H ealth Status Informant Generalized anxiety disorder Confirmed Active IBS (irritable bowel syndrome) Confirmed Active Periumbilical abdominal pain Confirmed Active Patient Care team information Care Team Personnel Name: Shannon Frank MD Position: [facility] Physician - Pediatrics Member Role: PCP Address: Address: [address] [place] [address]- Care Team Related Persons Name: RAJ TRINIDAD Address: home [address] [place] [address] Name: BEULAH MITCHELL Address: home [address] [place] [address] Name: BEULAH MITCHELL Address: [place] [address] [place] [address]
[2023-11-08] MEDS: 0.9 % Sodium Chloride 1,000 ML 999 ML IV (14:49)
[2023-11-08 14:52] VITALS: BP 115/77; BP 128/85; PULSE 62; PULSE 67
[2023-11-08 14:53] VITALS: BP 124/86; PULSE 94
[2023-11-08 14:54] LABS: MANUAL DIFF FLAG NO
[2023-11-08 14:57] LABS: Basophils Absolute Auto 0.1 X10*3/uL (0.0-0.2); Basophils Percent Auto 1.1 % (0-2); Eosinophils Absolute Auto 0.2 X10*3/uL (0.0-0.4); Eosinophils Percent Auto 2.9 % (0-4); Hematocrit 44.6 % (42.0-52.0); Hemoglobin 15.7 g/dl (14.0-18.0); Imm Gran Abs Auto 0.01 X10*3/uL (0.00-0.03); Imm Gran Pct Auto 0.2 % (0.0-0.4); Lymphocytes Absolute Auto 1.8 X10*3/uL (1.2-4.9); Lymphocytes Percent Auto 31.9 % (20-40); Mean Corpuscular HGB Conc 35.2 g/dl (31.0-36.0); Mean Corpuscular Hemoglobin 31.9 pg (27.0-33.0); Mean Corpuscular Volume 90.7 fL (80.0-98.0); Mean Platelet Volume 9.7 fL (9.4-12.4); Monocytes Absolute Auto 0.3 X10*3/uL (0.1-1.2); Monocytes Percent Auto 5.7 % (2-11); Neutrophils Absolute Auto 3.3 x10*3/uL (2.0-8.3); Neutrophils Percent Auto 58.2 % (45-73); Platelet Count 229 X10*3/uL (160-400); Red Blood Count 4.92 X10*6/uL (4.60-5.80); Red Cell Distribution Width 11.4 % (11.0-16.0); White Blood Count 5.6 X10*3/uL (4.8-10.8)
[2023-11-08 15:10] LABS: Magnesium 2.3 mg/dL (1.6-2.6)
[2023-11-08 15:11] LABS: Alanine Aminotransferase 14 U/L (0-40); Albumin Level 4.6 g/dL (3.5-5.0); Alkaline Phosphatase 52 U/L (39-117); Anion Gap 13 (12-20); Aspartate Amino Transferase 20 U/L (5-37); Bilirubin Total 0.7 mg/dL (0.0-1.0); Blood Urea Nitrogen 14 mg/dL (9-16); Calcium 9.9 mg/dL (8.4-10.2); Carbon Dioxide 27 mmol/L (22-29); Chloride 105 mmol/L (96-108); Creatinine Clr Calc Pharmacy 145.3; Estimated Glomerular Filt Rate > 60; Glucose Random 90 mg/dL (60-115); Potassium 3.8 mmol/L (3.3-5.1); Sodium 141 mmol/L (135-145); Total Protein 7.6 g/dL (6.5-8.0)
[2023-11-08 15:19] LABS: Troponin-I High Sensitivity < 2.7 ng/L (<3.5-35.0)
[2023-11-08 15:55] LABS: Influenza A PCR NEGATIVE (Negative); Influenza B PCR NEGATIVE (Negative); Resp Syncy Virus RNA Qual PCR NEGATIVE (Negative); SARS COV2 PCR INHOUSE NEGATIVE (Negative)
[2023-11-08 16:27] VITALS: BP 124/86; PULSE 94; RESP 18; TEMP 36.6; O2SAT 99
== END 2023-11-08 16:34 | disposition home or self-care (01) ==
PROVIDERS: Registered Nurse Emergency; Emergency Provider Emergency Medicine
DX: R07.89 Other chest pain (principal); R00.2 Palpitations; R42 Dizziness and giddiness; Z03.818 Encounter for observation for suspected exposure to other biological agents ruled out; Z79.899 Other long term (current) drug therapy
CPT/HCPCS: 0241U; 36415; 71046; 80053; 83735; 84484; 85025; 93005; 96374; 99284; 99285

== ENCOUNTER → 2023-11-08 10:33 | Outpatient (BNV) | payer OTHER, SELFPAY | PROVIDERS: Emergency Provider Emergency Medicine; Visit Provider Internal Medicine Cardiovascular Disease | DX: R00.0 Tachycardia, unspecified (principal) | CPT/HCPCS: 93010 ==

== ENCOUNTER 2024-09-28 09:18 | Emergency (ER) | payer OTHER, SELFPAY ==
--- NOTE | ~2024-09-28 | CT_ITS ---
CLINICAL HISTORY: bloody stools, abdominal pain CT abdomen and pelvis with IV contrast Comparison: None Findings: Lung bases show no active disease. No dependent layering pleural effusions. The heart is not enlarged. Liver normal size and contour. No focal hepatic lesions. Patent hepatic and portal veins. Physiologic distention of the gallbladder with no radiopaque gallstones. Homogeneous enhancement of the pancreas. Mild splenomegaly. Normal adrenal glands. Symmetrical renal excretion with no segmental or diffuse renal parenchymal disease or evidence of obstructive uropathy/hydroureteronephrosis. Normal caliber abdominal aorta. Bowel demonstrates a nonobstructive pattern. No free air. Normal appendix and terminal ileum. No significant diverticular disease or evidence of colitis. No intraperitoneal, retroperitoneal, pelvic or inguinal masses lymphadenopathy or abnormal fluid collections. Normal distention of the urinary bladder. No vertebral body compression fractures or spondylolisthesis. No bony destructive lesions. Impression: 1. Normal appendix. 2. Mild splenomegaly 3. No significant diverticular disease for evidence of colitis This document has been electronically signed by: Jj Reyez MD on 09/28/2024 12:15:32
[2024-09-28 09:20] VITALS: BP 133/69; PULSE 69; RESP 18; TEMP 37; O2SAT 97; BMI 21.9
--- NOTE | 2024-09-28 09:24 | ED_ITS ---
HPI - Abdominal Pain General Chief Complaint: Abdominal Pain Stated Complaint: bloody stool and vomit Time Seen by Provider: 09/28/24 09:21 Source: patient and family Mode of arrival: ambulatory Limitations: no limitations History of Present Illness ED Provider: María Elena Black APRN HPI narrative: 19 yo male with history of IBS-C, anxiety, daily marijuana use presents to the ER with complaints of 2 weeks of intermittent upper abdominal pain with 1-2 episodes of bloody stools daily. Patient reports straining to move his bowels, the sensation of having to move his bowels with rectal pressure with alternating diarrhea/constipation. Yesterday he had 6 spiked lemonades. This morning he experienced upper abdominal pain, nausea and had one episode of vomiting bright red blood. He smokes marijuana daily. He drinks alcohol 1-2 x/weekly and reports 1-2 drinks in one sitting. Denies tobacco use or vaping. Denies regular NSAID/ASA use. Has had years of intermittent abdominal pain, diarrhea/constipation. Has seen GI at [facility] before (last 3yrs ago) and had negative colonoscopy. Has tried miralax, fiber, stool softeners all unsuccessful per patient in the past. Related Data Previous Rx's ?Medication ?Instructions ?Recorded omeprazole 40 mg capsule,delayed 40 mg PO DAILY #30 caps 09/28/24 release Allergies Allergy/AdvReac Type Severity Reaction Status Date / Time amoxicillin Allergy Hives Verified 09/28/24 09:22 Review of Systems Review of Systems Yes all other systems are reviewed and are negative Constitutional: Reports no additional constitutional complaints, Denies body ache(s), Denies chills, Denies fever(s), Denies headache(s) and Denies weakness Eyes: Reports no additional eye complaints and Denies change in vision Reports system reviewed and no additional complaints, except as documented, Denies dizziness, Denies headache(s), Denies nasal congestion, Denies nasal discharge and Denies neck pain Cardiovascular: Reports no additional cardiovascular complaints, Denies chest pain, Denies leg edema and Denies dyspnea Respiratory: Reports no additional respiratory complaints, Denies cough and Denies dyspnea Gastrointestinal: Reports no additional gastrointestinal complaints, Reports abdominal pain, Reports hematochezia, Denies diarrhea, Denies nausea, Denies vomiting and Reports hematemesis Genitourinary: Denies urinary incontinence Musculoskeletal: Reports no additional musculoskeletal complaints, Denies back pain, Denies arthralgias, Denies joint swelling, Denies neck pain, Denies numbness and Denies tingling Skin/Breast: Reports system reviewed and no additional complaints, except as docu and Denies rash Reports system reviewed and no additional complaints, except as documented, Denies Abnormal speech present, Denies dizziness, Denies headache(s), Denies numbness, Denies tingling and Denies weakness PMFSH Past Medical History Attestation statement: The following information was validated with the patient. Source: old records reviewed and nursing notes reviewed Social History Social History Alcohol intake: current Alcohol intake frequency: a few times a month Use of substances other than those prescribed or required for medical reasons: Yes Substance Use Type: Marijuana Substance Use Frequency: Daily Last Used Substance: Days (ago) Any prior treatment program specific to substance use: No Advance Directives: No Advance Directives Information Provided: Yes Do you have a plan to hurt others: No Plan Physical Exam ED Vital Signs: Vital Signs - 24 hr 09/28/24 09:20 Temperature 98.6 F Pulse Rate 69 Respiratory Rate 18 Blood Pressure 133/69 Pulse Oximetry 97 Oxygen Delivery Method Room Air BMI result Body Mass Index 21.9 Const General: cooperative, healthy appearing, comfortable and no acute distress Orientation/consciousness: patient oriented x3 Limitations: no limitations HENMT Head: Yes normal to inspection Ears: hearing grossly normal bilaterally General nose exam: Normal external nose present Face and sinus: Yes normal facial exam Mouth: Normal oral and palatal mucosa present Throat: Yes posterior oropharynx normal Eyes General: appearance normal, both eyes and all related structures Pupils: Equal, round and reactive pupils present Neck Neck: Yes normal visual inspection Chest Chest palpation & inspection: normal inspection of the chest Resp Effort & Inspection: normal respiratory effort Auscultation: clear to auscultation bilaterally Cardio Rate: regular rate Rhythm: regular rhythm Peripheral pulses: Peripheral pulses 2+ throughout GI Inspection: Yes normal to inspection Palpation (GI): Soft to palpation, Tenderness to palpation present (GI) in the epigastrum; with no rebound tenderness and no guarding Auscultation: normal bowel sounds Rectal Exam - Male: Yes visual inspection normal, Yes normal sphincter tone and Yes heme negative stool Back/Spine/Pelvis Thoracic/Lumbar Spine: thoracic and lumbar spine normal to inspection Skin General skin exam: no rashes or lesions noted Neuro General: patient oriented x3, no focal motor deficits and normal sensation to monofilament Cranial nerves: Yes Equal, round and reactive pupils present Cognition (Neuro): normal cognition Speech: No Abnormal speech present Gait exam (Neuro): Normal gait present Motor exam (neuro): 5/5 motor strength present throughout Extrem General: Yes normal to inspection, Yes no pedal edema and Yes no calf tenderness Course Course Course Narrative: 1235- urine shows no signs of infection hemoglobin is stable. Mildly elevated AST, ALT and total bilirubin. May be secondary to recent alcohol use. CT shows no acute findings. Patient is nontoxic, abdomen soft and mildly tender, tolerating p.o.. I believe he can be discharged home to follow up outpatient with GI. I did review worrisome signs and symptoms with the patient when to seek emergency care. Medical Decision Making Medical Decision Making MDM Narrative: 19 yo male with history of IBS-C, anxiety, daily marijuana use presents to the ER with complaints of 2 weeks of intermittent upper abdominal pain with 1-2 episodes of bloody stools daily. Patient reports straining to move his bowels, the sensation of having to move his bowels with rectal pressure with alternating diarrhea/constipation. Yesterday he had 6 spiked lemonades. This morning he experienced upper abdominal pain, nausea and had one episode of vomiting bright red blood. He smokes marijuana daily. He drinks alcohol 1-2 x/weekly and reports 1-2 drinks in one sitting. Denies tobacco use or vaping. Denies regular NSAID/ASA use. Has had years of intermittent abdominal pain, diarrhea/constipation. Has seen GI at [facility] before (last 3yrs ago) and had negative colonoscopy. Has tried miralax, fiber, stool softeners all unsuccessful per patient in the past. On exam patient has epigastric TTP. No rebound or guarding. Rectal exam negative for occult blood. VSS Will obtain labs, UA, CT If w/u negative anticipate outpatient f/u GI Differential Diagnosis Differential Diagnoses: The differential diagnosis associated with the presentation includes IBS, colitis, infectious diarrhea, GIB, gastritis Admission/Observation Consideration of admission/observation: Escalation of care including admission/observation considered No active GIB, labs normal, clinically patient appears well, can f/u outpatient with GI Consult Healthcare Provider Management of the patient was discussed with: Rn Dialysis Junaid (recommend 30 day supply PPI), will see outpatient Lab Data MDM Lab Attestation statement: I reviewed the patient's lab results. 09/28/24 09:42 09/28/24 09:42 Labs: Lab Results 09/28/24 09/28/24 Range/Units 09:42 12:05 WBC 8.0 (4.8-10.8) X10*3/uL RBC 5.03 (4.60-5.80) X10*6/uL Hgb 15.2 (14.0-18.0) g/dl Hct 44.4 (42.0-52.0) % MCV 88.3 (80.0-98.0) fL MCH 30.2 (27.0-33.0) pg MCHC 34.2 (31.0-36.0) g/dl RDW 12.3 (11.0-16.0) % Plt Count 199 (160-400) X10*3/uL MPV 9.2 L (9.4-12.4) fL Immature Gran % (Auto) 0.3 (0.0-0.4) % Neut % (Auto) 71.9 (45-73) % Lymph % (Auto) 17.7 L (20-40) % Potter % (Auto) 8.3 (2-11) % Eos % (Auto) 1.3 (0-4) % Baso % (Auto) 0.5 (0-2) % Lymph # (Auto) 1.4 (1.2-4.9) X10*3/uL Potter # (Auto) 0.7 (0.1-1.2) X10*3/uL Eos # (Auto) 0.1 (0.0-0.4) X10*3/uL Baso # (Auto) 0.0 (0.0-0.2) X10*3/uL Abs Immat Gran (auto) 0.02 (0.00-0.03) X10*3/uL Absolute Neuts (auto) 5.8 (2.0-8.3) x10*3/uL Absolute Nucleated RBC 0.000 (0.0-0.012) X10*3/uL Nucleated RBC % (auto) 0.0 (0.0-0.2) /100WBC ESR 2 (0-15) MM/HR Sodium 140 (135-145) mmol/L Potassium 4.3 (3.3-5.1) mmol/L Chloride 105 (96-108) mmol/L Carbon Dioxide 27 (22-29) mmol/L Anion Gap 12 (12-20) BUN 13 (9-16) mg/dL Creatinine 0.78 (0.5-1.4) mg/dL Estim Creat Clear Calc 150.6 Estimated GFR > 60 Random Glucose 87 (60-115) mg/dL Calcium 9.7 (8.4-10.2) mg/dL Total Bilirubin 1.1 H (0.0-1.0) mg/dL Direct Bilirubin 0.3 (0.0-0.5) mg/dL AST 99 H (5-37) U/L ALT 44 H (0-40) U/L Alkaline Phosphatase 54 (39-117) U/L C-Reactive Protein 0.15 (< or = 0.50) mg/dL Total Protein 7.9 (6.5-8.0) g/dL Albumin 4.8 (3.5-5.0) g/dL Lipase 16 (8-78) U/L Urine Color Yellow Urine Appearance Clear Urine pH >= 9.0 (5.0-9.0) Ur Specific [place] >= 1.030 H (1.005-1.025) Urine Protein 30 (1+) H (Neg-Trace) mg/dL Urine Glucose (UA) Negative (Negative) mg/dL Urine Ketones 40 (Negative) mg/dL Urine Blood Negative (Negative) Urine Nitrite Negative (Negative) Ur Leukocyte Esterase Negative (Negative) Urine RBC 0-2 (0-2) /HPF Urine WBC 0-5 (0-5) /HPF Ur Squamous Epith Cells 0-2 (0-2) /HPF Urine Bacteria None Seen (None Seen) Hyaline Casts 0-2 (0-2) /LPF Independent Interpretation I performed an independent interpretation of an: CT Scan Interpretation: I independently reviewed the CT scan agree with the radiology report Radiology Impression Discussion of test interpretation with radiology: I have reviewed the radiologist's reading. Radiologist Impression: Ordering Physician: María Elena Black NP Date of Service: 09/28/24 Procedure(s): CT abdomen pelvis w IV con Accession Number(s): [id number] cc: Shannon Frank MD; María Elena Black NP~ Report Number: [id number]: Total DLP = 385.00 mGy-cm CLINICAL HISTORY: bloody stools, abdominal pain CT abdomen and pelvis with IV contrast Comparison: None Findings: Lung bases show no active disease. No dependent layering pleural effusions. The heart is not enlarged. Liver normal size and contour. No focal hepatic lesions. Patent hepatic and portal veins. Physiologic distention of the gallbladder with no radiopaque gallstones. Homogeneous enhancement of the pancreas. Mild splenomegaly. Normal adrenal glands. Symmetrical renal excretion with no segmental or diffuse renal parenchymal disease or evidence of obstructive uropathy/hydroureteronephrosis. Normal caliber abdominal aorta. Bowel demonstrates a nonobstructive pattern. No free air. Normal appendix and terminal ileum. No significant diverticular disease or evidence of colitis. No intraperitoneal, retroperitoneal, pelvic or inguinal masses lymphadenopathy or abnormal fluid collections. Normal distention of the urinary bladder. No vertebral body compression fractures or spondylolisthesis. No bony destructive lesions. Impression: 1. Normal appendix. 2. Mild splenomegaly 3. No significant diverticular disease for evidence of colitis This document has been electronically signed by: Jj Reyez MD on 09/28/2024 12:15:32 Independent Historian Clinical information obtained from an independent historian. History obtained from or confirmed by: Parent Prescription Management I considered prescription management with: Pain Medication Medications Administered Discontinued Medications Generic Name Dose Route Start Last Admin Trade Name Freq PRN Reason Stop Dose Admin Famotidine 20 mg 09/28/24 09:53 09/28/24 10:05 Famotidine/Pf 20 Mg/2 Ml Vial IVPUSH 09/28/24 09:54 20 mg ONCE ONE Administration Iohexol 100 ml 09/28/24 10:58 09/28/24 10:59 Iohexol 350 Mg/Ml 100 Ml Infus..Btl IV 09/28/24 10:59 85 ml ONCE ONE Administration Ondansetron HCl 4 mg 09/28/24 09:53 09/28/24 10:05 Ondansetron Hcl 4 Mg/2 Ml Vial IVPUSH 09/28/24 09:54 4 mg ONCE ONE Administration Discharge Plan Discharge Clinical Impression: Abdominal pain Patient Disposition: Home, Self-Care Instructions: Abdominal Pain (ED) Additional Instructions: Please avoid alcohol and marijuana use Increase fiber in diet Limit irritants such as fatty/greasy foods, acidic foods or citrus Return for worsening abdominal pain, multiple episodes of vomiting blood, worsening stools, fever, weakness or dizziness Prescriptions: New omeprazole 40 mg capsule,delayed release(DR/EC) 40 mg PO DAILY Qty: 30 0RF Referrals: Immanuel Bal MD [Physician] - 1 week Print Language: Dominican
[2024-09-28 09:47] LABS: MANUAL DIFF FLAG NO
[2024-09-28 09:48] LABS: Basophils Percent Auto 0.5 % (0-2); Eosinophils Absolute Auto 0.1 X10*3/uL (0.0-0.4); Eosinophils Percent Auto 1.3 % (0-4); Hematocrit 44.4 % (42.0-52.0); Hemoglobin 15.2 g/dl (14.0-18.0); Imm Gran Abs Auto 0.02 X10*3/uL (0.00-0.03); Imm Gran Pct Auto 0.3 % (0.0-0.4); Lymphocytes Absolute Auto 1.4 X10*3/uL (1.2-4.9); Lymphocytes Percent Auto 17.7 % (20-40); Mean Corpuscular HGB Conc 34.2 g/dl (31.0-36.0); Mean Corpuscular Hemoglobin 30.2 pg (27.0-33.0); Mean Corpuscular Volume 88.3 fL (80.0-98.0); Mean Platelet Volume 9.2 fL (9.4-12.4); Monocytes Absolute Auto 0.7 X10*3/uL (0.1-1.2); Monocytes Percent Auto 8.3 % (2-11); Neutrophils Absolute Auto 5.8 x10*3/uL (2.0-8.3); Neutrophils Percent Auto 71.9 % (45-73); Platelet Count 199 X10*3/uL (160-400); Red Blood Count 5.03 X10*6/uL (4.60-5.80); Red Cell Distribution Width 12.3 % (11.0-16.0)
--- NOTE | 2024-09-28 09:53 | PC.NURSE ---
This RN present in room with provider for rectal exam; pt tolerated well; bedside occult stool slide obtained/develped; negative for occult blood
[2024-09-28] MEDS: ondansetron HCL 4 MG/2 ML VIAL IVPUSH (10:05)
[2024-09-28] MEDS: Famotidine/PF 20 MG/2 ML VIAL IVPUSH (10:05)
[2024-09-28 10:10] LABS: Alanine Aminotransferase 44 U/L (0-40); Albumin Level 4.8 g/dL (3.5-5.0); Alkaline Phosphatase 54 U/L (39-117); Anion Gap 12 (12-20); Aspartate Amino Transferase 99 U/L (5-37); Bilirubin Direct 0.3 mg/dL (0.0-0.5); Bilirubin Total 1.1 mg/dL (0.0-1.0); Blood Urea Nitrogen 13 mg/dL (9-16); C Reactive Protein 0.15 mg/dL (< or = 0.50); Calcium 9.7 mg/dL (8.4-10.2); Carbon Dioxide 27 mmol/L (22-29); Chloride 105 mmol/L (96-108); Creatinine Clr Calc Pharmacy 150.6; Estimated Glomerular Filt Rate > 60; Glucose Random 87 mg/dL (60-115); Lipase 16 U/L (8-78); Potassium 4.3 mmol/L (3.3-5.1); Sodium 140 mmol/L (135-145); Total Protein 7.9 g/dL (6.5-8.0)
[2024-09-28 10:34] LABS: Erythrocyte Sedimentation Rate 2 MM/HR (0-15)
[2024-09-28] MEDS: iohexoL 350 MG/ML 100 ML INFUS..BTL IV (10:59)
[2024-09-28 12:16] LABS: Appearance Urine Clear; Color Urine Yellow; Glucose Urine UA Negative (Negative); Leukocyte Esterase Urine Negative (Negative); Nitrite Urine Negative (Negative); PH >= 9.0 (5.0-9.0); Specific Gravity - Urine >= 1.030 (1.005-1.025); UMIC TRIGGER UACC YES; Urine Blood Negative (Negative); Urine Ketones 40 mg/dL (Negative); Urine Protein 30 (1+) mg/dL (Neg-Trace)
[2024-09-28 12:20] LABS: Bacteria Urine None Seen (None Seen); Hyaline Casts Urine 0-2 /LPF (0-2); RBC Urine 0-2 /HPF (0-2); Squamous Epithelial Cell Urine 0-2 /HPF (0-2); WBC Urine 0-5 /HPF (0-5)
[2024-09-28 12:59] VITALS: BP 118/65; PULSE 72; RESP 18; TEMP 37; O2SAT 97
== END 2024-09-28 13:01 | disposition home or self-care (01) ==
PROVIDERS: Nurse Practitioner Family; Emergency Provider Internal Medicine; PCP Pediatrics Adolescent Medicine
DX: R10.10 Upper abdominal pain, unspecified (principal); R19.7 Diarrhea, unspecified; R11.0 Nausea
CPT/HCPCS: 36415; 74177; 80048; 80076; 81001; 83690; 85025; 85652; 86140; 96374; 96375; 99284; J2405; Q9967

== ENCOUNTER → 2024-09-28 09:53 | Outpatient (BNV) | payer OTHER, SELFPAY | PROVIDERS: Emergency Provider Internal Medicine; PCP Pediatrics Adolescent Medicine; Visit Provider Radiology Diagnostic Radiology | DX: K92.1 Melena (principal); R10.9 Unspecified abdominal pain; R16.1 Splenomegaly, not elsewhere classified | CPT/HCPCS: 74177 ==

== ENCOUNTER 2025-02-17 10:59 | Day surgery (SDC) | payer OTHER, SELFPAY ==
--- OUTSIDE RECORDS SUMMARY | 2025-01-05 05:40 | XMS_ITS ---
Author Organization [facility] Address [address] [place] [id number] Care Team Providers Care Certified Nurse Practitioner Name Role Phone Ivonne Leone Primary Care Provider Richard Louis Jr REASON FOR VISIT Patient presents today for GERD, EBS Encounters Encounter Location Date Provider Diagnosis [facility] [address] [place] [phone] 01/05/2025 Richard Lynn Jr Plan Of Treatment Next Appt Details Provider Name:Richard jacobson Jr, 02/17/2025 12:40:00 PM, [address] [place] [address] , [place], [place], [phone], Progress Notes * TIANSETH BAXTERDOB:2004 (19 yo M)Acc No.[id number]:01/05/2025 Progress Notes Patient: SETH OKEEFE Provider: Daren Lynn MD :2005 A ge:19 Y S ex:Male Date:01/05/2025 Address:[address] [place], [place] [id number] Pcp:Ivonne Leone Subjective: * Chief Complaints: * 1 . Patient presents today for GERD, EBS. * Medical History: Objective: * Vitals: Assessment: Plan: * Treatment: * * The named appointment provid er may or may not be the originator of this progress note, and it is not deemed complete until electronically signed by the appointment provider. Sign off status: Pending * Provider: Daren Lynn MD Date: 0 01/05/2025 Generated for Millie tinsley/Naomi/Addisitting on: 0 02/16/2025 09:26 AM EDT
[2025-02-13 14:05] VITALS: BMI 21.3
--- OUTSIDE RECORDS SUMMARY | 2025-02-16 09:26 | XMS_ITS | Clinical Summary ---
Author Organization [facility] Address [address] [place] [address] Phone Care Team Providers Care Harm Reduction Worker Name Role Phone Shannon Frank MD Primary Care Provider + Allergies Active Allergy Reactions Criticality Noted Date Comments Amoxicillin Rash Low 05/07/2023 Medications dicyclomine (BENTYL) 20 mg tablet Take 20 mg by mouth 4 (four) times a day. 3 Active ketotifen (ZADITOR) 0.025 % (0.035 %) ophthalmic solution Place 1 drop into each eye 2 (two) times a day. 5 mL 3 Active Additional Information Patient not taking.Reported on 12/06/2023 escitalopram oxalate (LEXAPRO) 10 MG tablet Take 1 tablet by mouth every morning. 4 Active sertraline (ZOLOFT) 50 MG tablet Take 1 tablet by mouth every morning. 4 Active busPIRone (BUSPAR) 5 MG tablet Take 1 tablet by mouth 2 (two) times a day. 5 Active omeprazole (PRILOSEC) 40 MG capsule Take 1 capsule by mouth every morning. 5 Active nortriptyline (PAMELOR) 10 MG capsule Take 10 mg by mouth. 4 Active hyoscyamine (ANASPAZ,LEVSIN ) 0.125 mg tablet Take 0.125 mg by mouth. 3 Active Active Problems Problem Noted Date Diagnosed Date Generalized anxiety disorder 12/06/2023 IBS (irritable bowel syndrome) 12/06/2023 Periumbilical abdominal pain 12/06/2023 Immunizations No known immunizations Social History Tobacco Use Types Packs/Day Years Used Date Smoking Tobacco: Never Smokeless Tobacco: Never Tobacco Cessation:Counseling Given: Not Answered Alcohol Use Standard Drinks/Week Comments Yes 0 (1 standard drink = 0.6 oz pur e alcohol) social Education Answer Date Recorded Are you interested in more education? Not on delicia e 05/07/2023 Are you concerned about learning? Not on file 05/07/2023 No 05/07/2023 No 05/07/2023 Digital Access Answer Date Recorded No 05/07/2023 No 05/07/2023 Reliable internet access at home? Not on file 05/07/2023 Device with a working camera? Not on file Sex and Gender Information Value Date Recorded Sex Assigned at Not on file Legal Sex Male 10:45 AM EST Gender Identity Not on file Sexual Orientation Not on file Last Filed Vital Signs Vital Sign Reading Time Taken Comments Blood Pressure 124/69 10/15/2024 12:27 PM EDT Pulse 77 10/15/2024 12:27 PM EDT Temperature 36.6 C (97.9 F) 10/15/2024 12:27 PM EDT Respiratory Rate 16 10/15/2024 12:27 PM EDT Oxygen Saturation 97% 10/15/2024 12:27 PM EDT Inhaled Oxygen Concentration - - Weight 65.8 kg (145 lb) 12/06/2023 10:41 AM EDT Height 180.3 cm (5' 11 ) 12/06/2023 10:41 AM EDT Body Mass Index 20.22 12/06/2023 10:41 AM EDT Plan of Treatment Health Maintenance Due Date Last Done Comments DEPRESSION SCREENING 2015 ADOLESCENT UNIVERSAL LIPID SCREENING 02/26/2020 HEPATITIS C SCREENING 2021 HIV ONE-TIME SCREENING (18-6 5 YEARS) 2021 COVID-19 VACCINE (2023-08 5 season) 2024 06/22/2021 SMOKING Hx and SMOKELESS TOB ACCO SCREENING 10/15/2025 10/15/2024 Adult Td,Tdap Booster 12/09/2033 12/10/2023, 014 COMBINED DTaP,Tdap,Td (8 - T d or Tdap) 12/09/2033 12/10/2023, 05/06/2014, 03/17/2008, Additional history exists HIB VACCINES Completed 06/28/2004, 06/02, 2003, Additional history exists PNEUMOCOCCAL VACCINES (0-49 years) Completed 06/28/2004, 2003, 2003 MMR VACCINES Completed 03/17/2008, 03/02, 03/02/2004, Additional history exists HEPATITIS A VACCINES Completed 05/06/2014, 04/29/20 13 HPV VACCINES Completed 11/17/2015, 07/02, 05/10/2015 MENINGOCOCCAL VACCINES (ACWY) Completed 10/06/2020 MENINGOCOCCAL VACCINES (B) Completed 11/09/2020, Medical Devices Not on file Insurance HMO O O O O HMO Care Teams Harm Reduction Worker Relationship Specialty Start Date End Date Shannon Frank MD [address] [place] [phone] PCP - General 05/07/23 Additional Source Comments The information contained in this document represents components of the legal health record. It is not the complete legal health record.[facility]
--- NOTE | 2025-02-16 13:20 | HO.ANESPROP2 ---
Documented by User: Nannette Narayan NP 02/16/25 13:21 HPI - Anesthesia Eval Consult details Narrative: 19 yr old male for upper endoscopy Uses marijuana [facility] Past Medical History Medical History IBS (irritable bowel syndrome) Anxiety Surgical History Surgical History H/O colonoscopy Social History Social History Alcohol intake: current Alcohol intake frequency: a few times a month Patient Tobacco Use Status: Never used Tobacco Use of substances other than those prescribed or required for medical reasons: Yes Substance Use Type: Marijuana Substance Use Frequency: Daily Advance Directives: No Advance Directives Information Provided: Yes Meds Allergies Allergy/AdvReac Type Severity Reaction Status Date / Time amoxicillin Allergy Hives Verified 09/28/24 09:22 Home Medications ?Medication ?Instructions ?Recorded ?Confirmed ?Last Taken ?Type buspirone 5 mg tablet 10 mg PO BID 02/13/25 02/17/25 02/17/25 08:00 History Exam Height,Weight and Vital Signs: Height 5 ft 11 in Weight 69.4 kg Pertinent Lab Results Pertinent Lab Results: Laboratory Tests 09/28/24 09:42 WBC 8.0 RBC 5.03 Hgb 15.2 Hct 44.4 Plt Count 199 Sodium 140 Potassium 4.3 BUN 13 Creatinine 0.78 Documented by User: La Nena Orantes MD 02/17/25 13:11 [facility] Past Medical History Medical History IBS (irritable bowel syndrome) Anxiety Surgical History Surgical History H/O colonoscopy History of Problems with Anesthesia: No Social History Social History Alcohol intake: current Alcohol intake frequency: a few times a month Patient Tobacco Use Status: Never used Tobacco Use of substances other than those prescribed or required for medical reasons: Yes Substance Use Type: Marijuana Substance Use Frequency: Daily Advance Directives: No Advance Directives Information Provided: Yes Meds Allergies Allergy/AdvReac Type Severity Reaction Status Date / Time amoxicillin Allergy Hives Verified 09/28/24 09:22 Home Medications ?Medication ?Instructions ?Recorded ?Confirmed ?Last Taken ?Type buspirone 5 mg tablet 10 mg PO BID 02/13/25 02/17/25 02/17/25 08:00 History Exam Airway Mallampati Class: II TM Dist: >3cm Neck ROM: Full Loose/Missing/Broken Teeth: No Heart: RRR Lungs: CTA Assessment and Plan Assessment Anesthesia Assessment: Anesthesia Plan Discussed and Chart Reviewed Final Anesthetic Review History of Problems with Anesthesia: No NPO: Yes ASA Class: II Final Preanesthetic Review: Meds/Allgs Chart Reviewed, Consent Obtained/Reviewed and Anes Risks/Benef Reviewed Patient Risk: Low Procedure Risk: Intermediate Anesthetic Plan Anesthetic Plan: MAC: Disposition: Standard PACU
[2025-02-17 12:34] VITALS: BMI 20.9
[2025-02-17 12:52] VITALS: BP 123/72; PULSE 49; RESP 16; TEMP 37.1; O2SAT 100
[2025-02-17] MEDS: Lactated Ringers 1,000 ML 100 ML IVCONT (12:54)
--- NOTE | 2025-02-17 13:14 | MHC.SHP ---
Pre-Procedural Eval Section A - 24 Hr Update-Section A only Date of Service: 02/17/25 The patient is an INPATIENT: No Changes since office visit: No Cold of Flu in the past 2 weeks, No New Medical Problems, No Changes in Medication and No Patient answered all questions The patient has been examined within 24 hours of the surgical procedure. The History & Physical has been completed within 30 days and I have reviewed it.: No Section B - Complete if H&P > 30 days Chief Complaint: gerd,hematenmesis Allergies: Allergies Allergy/AdvReac Type Severity Reaction Status Date / Time amoxicillin Allergy Hives Verified 09/28/24 09:22 Plan I have reviewed the history and physical and performed a pertinent physical examination on my patient. No changes have occurred unless specified. Time Spent With Patient Time: Total time managing care of this patient today ____ minutes.
--- NOTE | 2025-02-17 13:33 | P.BOP_ITS ---
Brief Operative Note Date of Service: 02/17/25 Pre-op diagnosis: gerd hematemesis Post-op diagnosis: same Procedure: EGD Surgeon: Richard Lynn MD Anesthesia: MAC Was an [employer] used for this Procedure?: No Estimated blood loss (mL): 2 Pathology: other Condition: stable Disposition: PACU
[2025-02-17 13:35] VITALS: BP 96/43; PULSE 53; RESP 18; TEMP 36.3; O2SAT 99
[2025-02-17 13:50] VITALS: BP 116/71; PULSE 51; RESP 16; TEMP 36.2; O2SAT 100
--- NOTE | 2025-02-18 00:11 | OP_ITS ---
DATE OF SERVICE: 02/17/2025 SURGEON: Richard Lynn MD INDICATIONS: Gastroesophageal reflux disease and history of hematemesis. PREOPERATIVE DIAGNOSIS: POSTOPERATIVE DIAGNOSIS: PROCEDURE PERFORMED: Upper endoscopy with biopsy. ESTIMATED BLOOD LOSS: COMPLICATIONS: ANESTHESIA: Monitored anesthesia care. ASSISTANTS: SPECIMENS: DESCRIPTION OF PROCEDURE: A history and physical was performed. The risks and benefits of the procedure were explained to the patient and informed consent was obtained. The patient was placed in the left lateral decubitus position. The Olympus video gastroscope was introduced into the esophagus, stomach, and duodenum. Examination was performed. The scope was removed. He tolerated the procedure well and was returned to the recovery area in stable condition. FINDINGS: Esophagus: The esophagus was normal. Biopsies were obtained from the EG junction. Stomach: The stomach was normal. Biopsies were obtained from the antrum. Duodenum: The bulb and 2nd portion were normal. Biopsies were obtained from the 2nd portion of the duodenum. IMPRESSION: Normal upper endoscopy. RECOMMENDATION: Follow up the biopsy results. MD COSMO Rodriguez/JOANNEL / [id number]
== END 2025-02-17 14:17 | disposition home or self-care (01) ==
PROVIDERS: Visit Provider Internal Medicine Gastroenterology
PROC: 0DJ08ZZ Inspection of Upper Intestinal Tract, Via Natural or Artificial Opening Endoscopic (ICD-10-PCS; CPT 43235; principal; 2025-02-17 12:40)
DX: K21.9 Gastro-esophageal reflux disease without esophagitis (principal); K92.0 Hematemesis; Z79.899 Other long term (current) drug therapy
CPT/HCPCS: 43239; 88305; 88313; 88342; J2003; J2250; J2704